=== PATIENT | female | born 1965 | race Caucasian/White ===

== ENCOUNTER 2017-04-20 15:52 | Emergency (ER) | payer OTHER ==
[~2017-04-20] VITALS: Ht 154.9 cm; Wt 95.5 kg
[~2017-04-20 15:52] MED LIST: CITA20TA PO; GABA-502 PO; GABA300C PO; LISI10TA PO; LORA-302 PO
[2017-04-20 15:55] VITALS: BP 123/83; PULSE 70; RESP 20; O2SAT 99
[2017-04-20] MEDS ORDERED: Lidocaine 1% 50 mL Inj NERVEBLOCK ONE (17:25)
--- NOTE | 2017-04-20 17:36 | ED.REPORT ---
HPI-Extremity Problem Upper Date of Service Apr 20, 2017 ED Provider: Doc,Ed MD History of Present Illness: hiking and fell on a wet rock around 1030 today. primary care is [facility]. right hand dominant. right little finger is obvious deformity. seen at urgent care and sent here Nursing Notes Stated Complaint: RT PINKY DISLOCATED Chief Complaint: Extremity Trauma Nursing Notes Reviewed: Yes Allergies: Coded Allergies: No Known Allergies (Verified , 04/20/17) Scheduled Citalopram-Expunged Drug, Do Not Renew! (Citalopram-Expunged Drug, Do Not Renew! ) 20 Mg Tablet 15 MG PO DAILY Gabapentin (Gabapentin) 300 Mg Capsule 300 MG PO DAILY Gabapentin-Expunged Drug, Do Not Renew! (Neurontin-Expunged Drug, Do Not Renew! ) 300 Mg Capsule 600 MG PO HS Lisinopril (Lisinopril) 10 Mg Tablet 10 MG PO DAILY Scheduled PRN Lorazepam (Ativan) 0.5 Mg Tablet 0.5 MG PO HS PRN PRN For Insomnia General Time Seen by MD: 17:28 Chief Complaint Finger injury right 5 Onset Occurred: 1 - 4 hours ago Symptom Duration: Since onset Past Medical History Past Medical History sciatica pulmonary embolism DVT thrombophelbitis Reports: Hypertension Past Surgical History abdominoplasty Reports: , Tonsillectomy Smoking History Unknown if Ever Smoker Social History Alcohol Use: "Social" Other Social History: Good social support, , Local resident 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 Ambulatory Status Independent Review of Systems Basic Review of Systems Eyes: Vision NL, No discharge : No dysuria, No frequency Psychiatric: Normal thought content Physical Exam Initial Vital Signs Vital Signs (First) Date Time Temp Pulse Resp B/P Pulse Ox O2 Delivery O2 Flow Rate FiO2 04/20/17 15:55 36.7 70 20 123/83 99 Room Air Initial VS: Reviewed, Vital signs normal General/Constitutional: Well-developed, Well-nourished Head / Eyes: Atraumatic, Normocephalic, PERRL ENT: Mucous membranes moist, Conjunctiva normal, No scleral icterus Neck: Supple, Non-tender, Full range of motion Respiratory: Breath sounds normal, Clear to auscultation, No respiratory distress Cardiovascular: Regular rate & rhythm, Heart sounds normal, Intact distal pulses Abdomen / GI: Soft, Non-tender, No guarding, No rebound, No distention Back: No CVA tenderness Lymphatic: No lymphadenopathy Lower Extremities: Vascular intact, Neuro intact, No swelling, No tenderness Skin: Warm, Dry, No cyanosis Neurologic: Alert, Oriented, Nonfocal Psychiatric: Mood/affect normal, Behavior normal, Normal thought content General/Constitutional: Awake, Alert, No acute distress, Well appearing, Well developed, Well hydrated Respiratory / Chest: Atraumatic, Breath sounds NL, Breath sounds = bilat Cardiovascular: Heart rate NL, Regular rhythm, Heart sounds NL Upper Extremity / MS: Atraumatic, Inspection NL, Full range of motion right little finger with obvious deformity Interpretation & Diagnostics X-Ray Interpretation Xray Interpretation: ROCEDURE: X-RAY FINGERS, TWO VIEWS RIGHT INDICATIONS: post reduction TECHNIQUE: AP hand, 2 views of the right finger(s) acquired. COMPARISON: None. FINDINGS: Bones: There is anatomic alignment, status post reduction of right little finger PIP dislocation. Redemonstration of small osseous density at the palmar aspect of the proximal phalanx near the PIP joint Soft tissues: No suspicious soft tissue calcifications. IMPRESSION: Improved, anatomic alignment of the little finger PIP joint following reduction. Possible fracture fragment at the palmar aspect of the proximal phalanx of the little finger near the PIP joint Dictated by: Paul Serrano M.D. on 04/20/2017 at 18:25 Approved by: Paul Serrano M.D. on 04/20/2017 at 18:27 Procedures Procedure Notes: finger reduced Reduction Finger Time: 19:00 Procedure Performed by: Allied health pract Consent / Setup / Site Prep: Informed consent provided, Consent from patient Finger / Joint Involved: PIP, Right 5 Anesthetic Method / Agent: Local injection, Lidocaine 1%, 3cc, 27g needle Post-Procedure / Complications: NV intact post-procedure, Procedure successful , X-ray confirms reduction, No complications, Tolerated procedure well, Patient stable Re-Eval/Medical Decision Med Decision/Clinical Course 51 year old female presents for finger reduction. Patient seen at urgent care and was not able to be reduced. No sign of compartment syndrome. Finger reduced without difficulty Discharge & Departure Impression: Primary Impression: Finger dislocation Encounter type: initial encounter Qualified Code: S63.259A - Unspecified dislocation of unspecified finger, initial encounter Additional Impression: Avulsion fracture Disposition: Home Patient Instructions: Avulsion Fracture (ED), Finger Dislocation (ED) Additional Instructions: Your finger has been reduced, meaning the finger is back in place. Keep the splint on till you are seen by ortho, Dr. Borges. Apply bacitracin the superficial injury on your finger. This is not an open fracture and you do not need antibiotics. Can use hydrocodone 1 up to 2 times a day as needed for severe unrelenting pain. Also ibuprofen 800 mg 3 times a day will be helpful for swelling and pain reduction. You can not work for 14 days. Note provided. You can do computer classes. Referrals: Richard Gonzalez MD (PCP) Zach Borges DO EDSupervising Provider for APC: Espinoza Muhammad MD copies to: Richard Gonzalez MD; Zach Borges Sue ARNP Apr 20, 2017 17:36
[2017-04-20 18:11] VITALS: BP 129/84; PULSE 64; RESP 20; O2SAT 97
--- NOTE | 2017-04-20 18:29 | DRSVH ---
PROCEDURE: X-RAY FINGERS, TWO VIEWS RIGHT INDICATIONS: post reduction TECHNIQUE: AP hand, 2 views of the right finger(s) acquired. COMPARISON: None. FINDINGS: Bones: There is anatomic alignment, status post reduction of right little finger PIP dislocation. Red emonstration of small osseous density at the palmar aspect of the proximal phalanx near the PIP joint Soft tissues: No suspicious soft tissue calcifications. IMPRESSION: Improved, anatomic alignment of the little finger PIP joint following reduction. Possible fracture fragment at the palmar aspect of the proximal phalanx of the little finger near the PIP joint Dictated by: Paul Serrano M.D. on 04/20/2017 at 18:25 Approved by: Paul Serrano M.D. on 04/20/2017 at 18:27
== END 2017-04-20 18:46 | disposition home or self-care (01) ==
LOC: SED 15:52
DX: S62.616A Displaced fracture of proximal phalanx of right little finger, initial encounter for closed fracture (principal); S63.280A Dislocation of proximal interphalangeal joint of right index finger, initial encounter; W01.0XXA Fall on same level from slipping, tripping and stumbling without subsequent striking against object, initial encounter; Y93.01 Activity, walking, marching and hiking; Y92.89 Other specified places as the place of occurrence of the external cause; Y99.8 Other external cause status; I10 Essential (primary) hypertension